=== PATIENT | female | born 2000 | race Caucasian/White ===

== ENCOUNTER 2020-02-02 17:22 | Emergency (ER) | payer OTHER, SELFPAY ==
[2020-02-02 17:50] VITALS: BP 110/75; PULSE 100; RESP 20; TEMP 36.8; O2SAT 100; BMI 22.0
--- NOTE | 2020-02-02 17:51 | ED.HEATRA ---
HPI - Head Injury General Chief complaint: Head Injury Stated complaint: Head Injury Time Seen by Provider: 02/02/20 17:43 Source: patient Mode of arrival: ambulatory Limitations: no limitations History of Present Illness HPI Narrative: patient states was standing next to a bed frame leaned over and hit the back of her head. She did not go unconscious. No change in vision. No syncope. Remembers the whole incident. Wanted to come here to get checked out and could not wait for primary care doctor's office to open tomorrow Complaint: head injury Onset (ago): hour(s) ( 1 hour) Arrival Conditions: negative C-spine immobilization present and spinal board immobilization present Place: home Location of injury: occipital Severity: mild Severity scale (1-10): 2 Radiation: none Other Injuries: none Related Data Home Medications Medication Instructions Recorded Confirmed No Known Home Meds 02/02/20 02/02/20 Review of Systems Review of Systems: Constitutional : No Weight loss, No Fever, No Chills, No Night Sweats, No Fatigue, No Malaise ENT/Mouth : No Hearing loss, No Ear Pain, No Nasal Congestion, No Sinus Pain, No Hoarseness, No sore throat, No Rhinorrhea, No Swallowing Difficulty Eyes: No Eye Pain, No Swelling, No Redness, No Foreign Body, No Discharge, No Vision Changes Cardiovascular : No Chest Pain, No SOB, No Dyspnea on Exertion, No Orthopnea, No Edema, No Palpitations Respiratory : No Cough, No Sputum, No Wheezing, No Smoke Exposure, No Dyspnea Gastrointestinal : No Nausea, No Vomiting, No Diarrhea, No Constipation, No abdominal Pain, No Hematochezia, No Melena Genitourinary : no irregular bleeding, No Dysuria, No Urinary Frequency, No Hematuria, No Urinary Incontinence, No Urgency, No Flank Pain, No Urinary Flow Changes, No Hesitancy Musculoskeletal : No joint pain, No Myalgias, No Joint Swelling Skin : No Skin Lesions, No rash Neuro : No Weakness, No Numbness, No Paresthesias, No Loss of Consciousness, No Dizziness, No Headache Psych : No Anxiety/Panic, No Depression, No SI/HI/AH/VH, No Social Issues, Heme/Lymph: No Bruising, No Bleeding,No Lymphadenopathy Endocrine : No Polyuria, No Polydipsia, No Temperature Intolerance [facility] Past Medical History Medical History (Updated 02/02/20 @ 17:59 by Milton Redman DO) No known health problems Patient denies medical problems Family History Family History (Updated 02/02/20 @ 17:54 by Milton Redman DO) Other Patient denies medical problems Social History Social History (Updated 02/02/20 @ 17:55 by Milton Redman DO) Household Members: Family Smoked in Last 30 Days: No Use of substances other than those prescribed or required for medical reasons: No Advance Directives: No Advance Directives Information Provided: Yes Physical Exam Vital Signs and I&O and Narrative: Vital Signs and I&O: Vital Signs Temp 98.2 F 02/02/20 17:50 Pulse 100 02/02/20 17:50 Resp 20 02/02/20 17:50 BP 110/75 02/02/20 17:50 Pulse Ox 100 02/02/20 17:50 Intake & Output 02/02/20 02/02/20 02/03/20 06:59 18:59 06:59 Weight 54.638 kg Body Mass Index 22.0 vital sign review Const: Other: Appearance: Alert. Oriented X3. No acute distress. Eyes: Pupils equal, round and reactive to light. ENT: Pharynx normal. Neck: Normal inspection. Neck supple. CVS: Normal heart rate and rhythm. Pulses normal. Respiratory: No respiratory distress. Breath sounds normal. Abdomen: Soft and nontender. Skin: Skin warm and dry. Normal skin color. Normal skin turgor. Extremities: No lower extremity edema. No lower extremity edema. Neuro: Oriented X 3. No motor deficit. No sensory deficit. normal finger to nose. Normal cranial nerves 2-12. no tongue deviation no slurred speech Course Course Hospital Course: patient normal neuro exam. Alert and oriented x3. At this point I doubt patient has intracranial hemorrhage. I did insurance counsel patient on head injury and reasons to return to the emergency department Discharge Plan Discharge Clinical Impression: Closed head injury Qualifiers: Encounter type: initial encounter Qualified Code(s): S09.90XA - Unspecified injury of head, initial encounter Patient Disposition: Home, Self-Care Instructions: Head Injury (ED) Additional Instructions: Thank you for visiting the emergency department today. If your symptoms worsen or do not resolve completely please return to the emergency department immediately or call 911. if he have any questions please call your primary care physician Prescriptions: No Action No Known Home Meds RF: 0 Referrals: [facility] [Provider Group] - 2 days Interventions: ED Discharge Assessment Last Done: 02/02/20 19:42 Discharge Date/Time: 02/02/20 19:48
== END 2020-02-02 19:48 | disposition home or self-care (01) ==
PROVIDERS: Emergency Provider Emergency Medicine
DX: S09.90XA Unspecified injury of head, initial encounter (principal); W22.8XXA Striking against or struck by other objects, initial encounter; Y93.9 Activity, unspecified; Y92.013 Bedroom of single-family (private) house as the place of occurrence of the external cause; Y99.9 Unspecified external cause status
CPT/HCPCS: 99283; 99284